=== PATIENT | female | born 1925 | race Caucasian/White ===

== ENCOUNTER 2016-04-20 02:08 | Emergency (ER) | payer OTHER ==
[2016-04-20 02:20] VITALS: BP 152/70; PULSE 79; RESP 18; TEMP 98.1; O2SAT 91
--- NOTE | 2016-04-20 02:22 | EDPHY ---
H & P Stated Complaint: right tear duct bleeding starting 1 hour [employer] HPI/ROS: HPI CHIEF COMPLAINT: Bleeding from both tear ducts HISTORY OF PRESENT ILLNESS: This patient very pleasant 89-year-old female she does have and extensive past medical history of AFib, she is on Plavix and Xarelto according to the patient, she has a history of bypass surgery, AICD, hypertension, chronic kidney disease and obstructive sleep apnea, COPD on 2 L nasal cannula, she presents emergency room at 2:30 a.m. in the morning with her daughter for bleeding that came out of both medial canthus of her eyes. She states she was trying to go to sleep she felt fluid running out of both of her eyes she rubbed her eyes turn underlying realize it was blood. This has since resolved. She has never had this happen before she became very concerned and presented to the emergency room. Upon arrival here in the emergency room she appears well nontoxic no acute distress she denies chest pain shortness of breath denies headache, denies facial pain, denies trauma, denies visual disturbance. She states the bleeding has resolved. She does tell me that she often gets nose bleeds that she wears a nasal cannula and her nose gets dried she is on blood thinners. Past Medical History:Multiple medical problems including hypertension, chronic kidney disease, obstructive sleep apnea, COPD, AFib, coronary artery disease Past Surgical History: CABG, AICD Social History: Denies use of drugs alcohol tobacco products lives locally Family History: noncontributory ROS REVIEW OF SYSTEMS: A comprehensive 10 point review of systems is otherwise negative aside from elements mentioned in the history of present illness. Exam Constitutional triage nursing summary reviewed, vital signs reviewed, awake/ alert. Eyes normal conjunctivae and sclera, EOMI, PERRLA. Bilateral medial canthus are clear and open. No evidence of bleeding. HENT bilateral nares; there is clotted blood with some for fresh bright red blood in the left near, right nares normal, posterior pharynx normal, no blood visualize, atraumatic, moist mucus membranes, no epistaxis, neck supple/ no meningismus, no raccoon eyes. Respiratory clear to auscultation bilaterally, normal breath sounds, no respiratory distress, no wheezing. Cardiovascular rate normal, regular rhythm, no murmur, no edema, distal pulses normal. Gastrointestinal soft, non-tender, no rebound, no guarding, normal bowel sounds, no distension, no pulsatile mass. Genitourinary no CVA tenderness. Musculoskeletal no midline vertebral tenderness, full range of motion, no calf swelling, no tenderness of extremities, no meningismus, good pulses, neurovascularly intact. Skin pink, warm, & dry, no rash, skin atraumatic. Neurologic awake, alert and oriented x 3, AAOx3, moves all 4 extremities equally, motor intact, sensory intact, CN II-XII intact, normal cerebellar, normal vision, normal speech. Psychiatric normal mood/affect. Heme/Lymph/Immune no lymphadenopathy. Differential Diagnosis: Includes but is not limited to in a particular order, epistaxis, posterior epistaxis, epistaxis leading to blood coming out of the medial canthus Medical Decision Making: This patient appears well here nontoxic no acute distress no evidence of bleeding at this time. I explained to the patient she can go home however she gets recurrence of bleeding from her medial canthus she needs return emergency room. If she gets a nose bleed she is apply direct pressure for 20 minutes lean her head forward to a attempt abort the nose bleed. However she has significant bleeding out of her nose cannot get her nose to stop bleeding or if she has significant bleeding out of either can't this she needs return to the ER. She is comfortable this plan, daughter at bedside is comfortable this plan. Source: Patient - Personal History Current Tetanus/Diphtheria Vaccine: Yes Current Tetanus Diphtheria and Acellular Pertussis (TDAP): Yes Tetanus Vaccine Date: within ten years - Medical/Surgical History Hx Asthma: Yes Hx Chronic Respiratory Disease: Yes Hx Diabetes: No Hx Cardiac Disease: Yes Hx Renal Disease: No Hx Cirrhosis: No Hx Alcoholism: No Hx HIV/AIDS: No Hx Splenectomy or Spleen Trauma: No Other PMH: left mastectomy, CABG, COPD, asthma, bilateral cataract removals, hysterectomy, bilateral carotid endarectomy, multiple heart stents, heart ablation - Social History Smoking Status: Former smoker Constitutional: Initial Vital Signs Temperature (C) 36.7 C 04/20/16 02:17 Heart Rate 79 04/20/16 02:17 Respiratory Rate 18 04/20/16 02:17 Blood Pressure 152/70 H 04/20/16 02:17 O2 Sat (%) 91 L 04/20/16 02:17 O2 Delivery Mode Nasal Cannula O2 (L/minute) 3 Allergies/Adverse Reactions: [id number]-Ozy Reductase Inhibitor Allergy (Intermediate, Verified 02/13/16 20: 01) myalgias adhesive tape Allergy (Unknown, Verified 02/13/16 20:01) Hives codeine [Codeine] Allergy (Unknown, Verified 02/13/16 20:01) crazy Penicillins Allergy (Unknown, Verified 02/13/16 20:01) metoclopramide [Metoclopramide] Allergy (Verified 02/13/16 20:01) Other-Enter Comments zolpidem tartrate [From Ambien] Allergy (Verified 02/13/16 20:01) Other-Enter Comments Home Medications: Medication Instructions Recorded Clopidogrel Bisulfate [Plavix (*)] 75 mg PO DAILY 04/29/12 Levothyroxine [Synthroid 50 mcg 50 mcg PO DAILY06 04/29/12 (*)] Spironolactone [Aldactone 25 MG 12.5 mg PO DAILY 04/29/12 (*)] Acetaminophen [Tylenol ES 500 mg 500 mg PO Q6 PRN 10/16/12 (*)] Nitroglycerin [Nitrostat 0.4 mg 0.4 mg SL PRN PRN 10/16/12 (*)] Multivitamins [Multivitamin (*)] 1 each PO DAILY 02/04/15 Potassium Cl [Klor-Con 10 meq (RX)] 10 meq PO BID 02/04/15 Rivaroxaban [Xarelto 15mg (*)] 15 mg PO DAILY 02/04/15 Sertraline HCl [Zoloft 50mg (*)] 50 mg PO DAILY 02/04/15 Amlodipine Besylate 08/16/15 Departure - Departure Disposition: Home, Routine, Self-Care Clinical Impression: Epistaxis Condition: Fair Instructions: Nosebleed (ED) Additional Instructions: 1. Return emergency room if he develops any worsening bleeding questions or concerns. Referrals: Laurel Paul MD [Primary Care Provider] - As per Instructions Hanna Sidhu MD [Medical Doctor] - As per Instructions
== END 2016-04-20 02:51 | disposition home or self-care (01) ==
DX: R04.0 Epistaxis (principal); J44.9 Chronic obstructive pulmonary disease, unspecified; I12.9 Hypertensive chronic kidney disease with stage 1 through stage 4 chronic kidney disease, or unspecified chronic kidney disease; N18.9 Chronic kidney disease, unspecified; Z79.01 Long term (current) use of anticoagulants; Z87.891 Personal history of nicotine dependence; Z95.1 Presence of aortocoronary bypass graft